=== PATIENT | female | born 1990 | race Caucasian/White ===

== ENCOUNTER 2025-01-16 08:02 | Outpatient (REF) | payer OTHER, SELFPAY ==
--- NOTE | 2025-01-16 | EMG_ITS ---
Chief complaint: Right hand pain and numbness Reason for referral: G56.01, CTS Referred by: Collette Diaz MD Procedure done: Right upper extremity NCS / EMG Right median and ulnar motor studies were performed. Right median and ulnar mixed sensory studies and radial sensory study was obtained. Bilateral median and lateral antecubital brachial sensory studies were performed an EMG needle examination was performed. There was significant delay of right median motor distal latencies. Median mixed study revealed moderately slow conduction velocity with significant delay of distal latencies. Impression: [id number]-ef-opqfetun right median neuropathy across carpal tunnel MTDD
--- OUTSIDE RECORDS SUMMARY | 2025-01-16 08:08 | XMS_ITS | Clinical Summary ---
Author Organization [facility] Address [address] [place] [address] Care Team Providers Care Junior Network Engineer Name Role Phone Unavailable Primary Care Provider Unavailabl e Source Comments PLEASE NOTE, if this patient is a minor, it may be UNLAWFUL to discuss sensitive information that is contained in these records (such as FAMILY PLANNING, MENTAL HEALTH or SUBSTANCE ABUSE) with the minor patient's parent or other person without the patient's specific authorization.[facility] Allergies No known active allergies Medications No known medications Active Problems No known active problems Encounters Date Type Department Care Team Description 11/07/2024 2:20 PM EDT Office Visit [facility] [address] [place] [id number] Teresa Jackman RHD from Last 3 Months Social History Tobacco Use Types Packs/Day Years Used Date Smoking Tobacco: Never Smokeless Tobacco: Never Tobacco Cessation:Counseling Given: Not Answered Alcohol Use Standard Drinks/Week Comments Never 0 (1 standard drink = 0.6 oz pur e alcohol) Social Connections Answer Date Recorded Connectedness 0 12/24/2023 Financial Resource Strain Answer Date R ecorded Financial Resource Strain 0 2022 Stress Answer Date Recorded Stress 0 12/21/2022 Physical Activity Answer Date Recorded Physical Activity 0 12/21/2022 Food Insecurity Answer Date Recorded Food 0 12/30/2023 Transportation Needs Answer Date Record ed Transportation 0 12/21/2022 Housing Stability Answer Date Recorded Housing 0 12/21/2022 Safety and Environment Answer Date Dave rded Safety 0 12/21/2022 Utilities Answer Date Recorded Utilities 0 12/21/2022 Employment Answer Date Recorded Stress 0 12/24/2023 Comments Unknown Sex and Gender Information Value Date Recorded Sex Assigned at Not on file Legal Sex Female 1:10 PM PDT Gender Identity Not on file Sexual Orientation Not on file Last Filed Vital Signs Vital Sign Reading Time Taken Comments Blood Pressure 121/89 11/07/2024 2:20 PM EDT Pulse 81 11/07/2024 2:20 PM EDT Temperature - - Respiratory Rate - - Oxygen Saturation - - Inhaled Oxygen Concentration - - Weight - - Height - - Body Mass Index - - Plan of Treatment Upcoming Encounters Date Type Department Care Team (Late st Contact Info) Description 05/14/2025 3:40 PM EST Office Visit [facility] [address] [place] [phone] Teresa Jackman, IRWIN [address] [place] [address] Health Maintenance Due Date Last Done Comments Anxiety Screening 1988 Diabetes Screening 1988 HPV Screening 1988 Hepatitis C Screening 1988 Pap + HPV 1988 HIV Screening 01/01/2003 Relationship Safety Screening/Counseling 01/01/2003 Imm-Hepatitis B (1 of 3 - 19 + 3-dose series) 01/01/2007 Cervical Cancer Screening 01/01/2009 Pap Smear 01/01/2009 Alcohol and Drug Screen 04/05/2024 Depression Annual Screen 04/05/2024 [id number] ( season) 2024 021, 11/26/2020 Imm-Influenza (#1) 2024 05/13/2020, 0 12/29/2016, 04/06/2014 Hypertension Screening (#1) 11/07/2025 Tobacco Screening 11/07/2025 11/07/2024 Dental BW 11/09/2025 11/07/2024, 10/03, 04/15/2023 Dental Examination 11/09/2025 11/07/2024, 0 10/14/2023, 04/15/2023 Dental Perio Charting 11/09/2025 11/07/2024 , 10/14/2023, 04/15/2023 Dental Prophy 11/09/2025 11/07/2024, 10/03, 04/15/2023 Dental FMX/Pano 04/17/2028 04/15/2023 Imm-DTaP/Tdap/Td (3 - Td or Tdap) 07/08/2030 021, 06/26/2014 Imm-HPV Completed 05/13/2021, 10/0 11/2020, 11/11/2020 Cervical Ablation/Cold-Knife Conization Discontinued Cervical Cryotherapy Discontinued Colposcopy Discontinued Endometrial Biopsy Discontinued Excision/Leep Discontinued HPV Genotyping Discontinued Vaginal Pap Discontinued Vulvoscopy Discontinued Procedures Procedure Name Priority Date/Time Associated Diagnosis Comments 10 INTRAORAL - PERIAPICAL FIRST RADIOGRAPHIC IMAGE Routine 11/07/2024 2:20 PM EDT Chronic gingivitis, plaque induced Encounter for dental examination PERIODIC ORAL EVALUATION ESTABLISHED PATIENT Routine 11/07/2024 2:20 PM EDT Encounter for dental examination DENTAL CASE MANAGEMENT - MOTIVATIONAL INTV Routine 11/07/2024 2:20 PM EDT Encounter for dental examination PROPHYLAXIS - ADULT Routine 11/07/2024 2 :20 PM EDT Encounter for dental examination COMP PERIODONTAL EVALUATION - NEW/EST PATIENT Routine 11/07/2024 2:20 PM EDT Encounter for dental examination BITEWINGS - FOUR RADIOGRAPHIC IMAGES Routine 11/07/2024 2:20 PM EDT Encounter for dental examination CARIES RISK ASSESSMENT & DOC FINDING HIGH RISK Routine 11/07/2024 2:20 PM EDT Encounter for dental examination NUTRITIONAL COUNSELING CONTROL OF DENTAL DISEASE Routine 11/07/2024 2:20 PM EDT Encounter for dental examination ORAL HYGIENE INSTRUCTIONS Routine 11/07/2024 2:20 PM EDT Encounter for dental examination ORAL CANCER SCREENING Routine 11/07/2024 2:20 PM EDT Encounter for dental examination CASE PRESENTATION SUBS DTL & EXTENSIVE TX PLN Routine 11/07/2024 2:20 PM EDT Encounter for dental examination INTRAORAL - COMP SERIES OF RADIOGRAPHIC IMAGES Routine 04/15/2023 10:20 AM EST Encounter for dental examination from Last 3 Months or Most Recently Relevant to Health Maintenance Insurance [employer] NET DENTAL DENTAL
--- OUTSIDE RECORDS SUMMARY | 2025-01-16 08:08 | XMS_ITS | Clinical Summary ---
Author Organization [facility] Address [address] [place] [address] Phone Care Team Providers Care Video Clerk Name Role Phone Cielo Diaz MD Primary Care Provider [phone] Allergies No known active allergies Medications No known medications Active Problems Problem Noted Date Diagnosed Date Benign breast cyst in female 06/19/2023 Overview (02/25/2024): 06/18/2023 Conclusions: Probably benign fibroglandular opacity in the posterior medial right breast without ultrasonographic correlate. 6 months follow-up mammogram is recommended. Findings were explained to the patient. Appointment is scheduled. Surgical History Surgery Date Site/Laterality Comments SECTION PROCEDURE: HISTORICAL DELIVERY TUBAL LIGATION PROCEDURE: HISTORICAL TUBAL LIGATION Medical History Medical History Date Comments Migraine DX:Migraine Family History Medical History Relation Name Comments Pancreatic cancer Aunt father side No Known Problems Brother No Known Problems Father intentisal cancer Father's Sister Breast cancer Father's side cousin Other cancer Father's side cousin eye (? neurobl astoma) No Known Problems Mother Sarcoidosis Other 1 cousine Prostate cancer Other 2 Breast cancer Other 3 mom speech and language tutor Breast cancer Paternal Grandmother No Known Problems Sister 1 No Known Problems Sister 2 Relation Name Status Comments Aunt father side Alive Brother Alive Father Alive Father's Sister Alive Father's side cousin Alive Half-Sister Alive Mother Alive Other 1 cousine Other 2 Other 3 mom speech and language tutor Paternal Grandmother Sister 1 Alive Sister 2 Alive Social History Tobacco Use Types Packs/Day Years Used Date Smoking Tobacco: Never Smokeless Tobacco: Never Alcohol Use Standard Drinks/Week Comments Never 0 (1 standard drink = 0.6 oz pur e alcohol) Comments No Sex and Gender Information Value Date Recorded Sex Assigned at Not on file Legal Sex Female 3:00 AM EST Gender Identity Not on file Sexual Orientation Not on file 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 Not on file Not on file Obstetrics History Para Term AB IAB SAB Ectopic Multiple Livin g Live Births 3 3 3 3 3 Date Outcome GA Total Labor Labor/2nd/3rd Weight Sex Type Anes PTL Lyudmila A1 A5 Name Clin 2004 Term Vag-S pont Living 2014 Term CS-Un spec Living 2020 Term CS-Un spec Living Last Filed Vital Signs Vital Sign Reading Time Taken Comments Blood Pressure 136/92 04/18/2024 1:34 PM EST Pulse 89 04/18/2024 1:34 PM EST Temperature - - Respiratory Rate 18 04/18/2024 1:34 PM EST Oxygen Saturation - - Inhaled Oxygen Concentration - - Weight 84 kg (185 lb 1.6 oz) 04/18/2024 1:34 PM EST Height 157.5 cm (5' 2 ) 04/18/2024 1:34 PM EST Body Mass Index 33.86 04/18/2024 1:34 PM EST Plan of Treatment Health Maintenance Due Date Last Done Comments Hepatitis B Vaccines (1 of 3 - 19+ 3-dose series) 01/01/2007 COVID-19 Vaccine (3 - Pfizer risk series) 01/14/2021 12/17/2020, 11/26/2020 Cholesterol Screening (Lipid Panel) 05/05/2023 HIV Screening 05/05/2023 Hepatitis C Screening 05/05/2023 Social Influencers of Health Screening 05/05/2023 Depression Screening 04/05/2024 Influenza Vaccine (#1) 2024 , 12/29/2016, 04/06/2014 Cervical Cancer Screening: HPV 03/31/2028 03/31/2023 DTaP,Tdap,and Td Vaccines (3 - Td or Tdap) 07/08/2030 07/08/2020, 06/26/2014 RSV Immunization Adult Patients (1 - 1-dose 75+ series) 01/01/2063 HPV Vaccines Completed 05/13/2021, 01/10/2021, 11/11/2020 HIB Vaccines Aged Out No longer eligi ble based on patient's age to complete this topic Hepatitis A Vaccines Aged Out No long er eligible based on patient's age to complete this topic IPV Vaccines Aged Out No longer eligi ble based on patient's age to complete this topic MMR Vaccines Aged Out No longer eligi ble based on patient's age to complete this topic Meningococcal ACWY Vaccine Aged Out N o longer eligible based on patient's age to complete this topic Meningococcal B Vaccine Aged Out No l onger eligible based on patient's age to complete this topic Pneumococcal Vaccine: Pediatrics (0 to 5 Years) and At-Risk Patients (6 to 49 Years) Aged Out No longer eligible b ased on patient's age to complete this topic RSV Immunization Patients Under 20 months Aged Out No longer eligible b ased on patient's age to complete this topic Varicella Vaccines Aged Out No longer eligible based on patient's age to complete this topic Procedures Procedure Name Priority Date/Time Associated Diagnosis Comments HPV Routine 03/31/2023 from Last 3 Months or Most Recently Relevant to Health Maintenance Results * Cervical Cancer Screening: HPV (03/31/2023) Cervical Cancer Screening: HPV negative, abstracted Historical Provider MD HEALTH MAINTENANCE Final Result from Last 3 Months or Most Recently Relevant to Health Maintenance Insurance [facility] PUBLIC PL[employer] Care Teams Video Clerk Relationship Specialty Start Date End Date Cielo Diaz MD [address] [place] [address] [place] [address] PCP - General 02/11/23
== END 2025-01-16 08:03 | disposition home or self-care (01) ==
LOC: HO.NEURO 08:02
PROVIDERS: PCP Internal Medicine; Visit Provider Internal Medicine
DX: G56.01 Carpal tunnel syndrome, right upper limb (principal); R20.0 Anesthesia of skin
CPT/HCPCS: 95886; 95910

== ENCOUNTER → 2025-01-16 08:06 | Outpatient (BNV) | payer OTHER, SELFPAY | PROVIDERS: PCP Internal Medicine; Visit Provider Psychiatry & Neurology Neurology | DX: G56.01 Carpal tunnel syndrome, right upper limb (principal) | CPT/HCPCS: 95886; 95909 ==

== ENCOUNTER 2025-03-27 11:09 | Outpatient (AMB) | payer OTHER, SELFPAY ==
--- NOTE | 2025-03-27 11:14 | AM.OFFWIN_ITS ---
Intake Vital Signs 03/27/25 11:17 Height 5 ft 2 in Weight 161 lb BMI 29.4 BP 119/68 Blood Pressure Location Lt brachial Position Sitting Respiration 18 Pulse 70 Pulse Source Pulse Oximeter Temp 97.9 F Temp Source Oral Pulse Oximetry (%) 100 Oxygen Delivery Method Room Air Intake Visit Reasons: EP - Vertigo Intake Note: EP complains of heaviness in her head, feeling like her face is trembling, feeling of falling when walking and feeling the room is moving when she is in resting position. Statred last week on . Allergies No Known Allergies Allergy (Verified 03/27/25 11:26) Medication List - Last Reconciled 03/27/25 by Taylor Suazo MD clobetasol 0.05% topical BID PRN meclizine 12.5 mg PO TID PRN naproxen 500 mg PO BID Do you need a note to return to daycare/school/sports/work: Yes HPI HPI Comments History of Present Illness Details History of Present Illness The patient is a 35 year old female presenting with dizziness, left impacted cerumen, and headaches. Jarocho TAFOYA assisted with translation as patient speaks primarily Guyanese. Dizziness and Vertigo: - The patient reports the onset of dizzi ness began last . - She has a history of vertigo, which sh e attributes to cerumen impaction that requires flushing - She reports dizziness worsens with mov ement of the head - Patient records from [facility] indicate a similar presentation of dizziness, headaches, and a crawling sensation, for which she was prescribed medications for vertigo and atypical migraines. - The patient has a history of migraines but discontinued her migraine medication a few years ago due to resolution of symptoms - She currently reports a mild headache. She took ibuprofen 600mg which only helped a little. 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 - She denies any significant vision mojica ges. - The patient previously visited a [facility] urgent care for her ear and was prescribed antibiotics in the beginning of March, which she did not finish due to experiencing unwanted side effects - She denies any current ear pain. She d enies chest pain, shortness of breath, or palpitations - She denies any nausea, vomiting, visio n changes, or focal weakness. Review of Systems Constitutional: Negative for fevers, chills HENT: Reported impacted cerumen of the left ear. Denies ear pain, ear discharge Eyes: Negative for visual disturbance Cardiac: Denies chest pain, shortness of breath, palpitations Gastrointestinal: Negative for nausea, vomiting. Neurological: Reports dizziness and headaches. Negative for numbness or weakness. Physical Exam General Appearance: Normal appearance, well developed. No acute distress HEENT: Normocephalic, atraumatic. PERRLA. EOM intact without nystagmus. Impacted cerumen of the left ear. Moderate ear wax noted in the right ear. Pulmonary: No respiratory distress. Speaking in full sentences Musculoskeletal: Moving all extremities spontaneously and against gravity Neurological: CN 2-12 tested and intact. No focal deficits noted on exam. Normal gait Mental Status: Alert and Oriented x 3 Psychiatric: Normal mood. Normal affect. Physical Exam Vital Signs: Last Vital Signs Temp 97.9 F 03/27/25 11:17 Pulse 70 03/27/25 11:17 Resp 18 03/27/25 11:17 BP 119/68 03/27/25 11:17 Pulse Ox 100 03/27/25 11:17 Oxygen Delivery Method Room Air 03/27/25 11:17 BMI result Body Mass Index 29.4 Office Procedures Cerumen Removal Details: Performed by LUIS CARLOS Ugarte From which ear canal was the cerumen removed: bilateral Removal: irrigation Notes: patient tolerated procedure well [id number] Irrigation/Lavage Assessment & Plan Assessment & Plan (1) Dizziness: Code(s): R42 - Dizziness and giddiness (2) Impacted cerumen of both ears: Code(s): H61.23 - Impacted cerumen, bilateral (3) Headache: Code(s): R51.9 - Headache, unspecified Qualifiers: Headache type: unspecified Headache chronicity pattern: acute headache Intractability: not intractable Qualified Code(s): R51.9 - Headache, unspecified Plan - Patient presents with cerumen impaction (L>R), dizziness, and headaches. - Patient reports a history of dizziness caused cerumen impaction, however was also noted to have a history of vertigo in the past - No neurological deficits were noted on exam - Both ears were irrigated and were clear upon re-evaluation without any signs of infection. - The patient reported some residual dizziness post irrigation. Discussed with patient that any remaining water may also be contributing to symptoms. However, due to history of vertigo, if symptoms persist, meclizine will be sent to patient's pharmacy to take as needed. Discussed proper administration and potential side effects of medication. - Advised ibuprofen or naproxen to help with mild headaches. She has a history of migraines but has not required prescription medication for a few years. Recommended to take medication with food. May take Tylenol if additional pain management as necessary, however was advised not to take ibuprofen and naproxen together. - Advised to avoid using Q-tips in ears and consider using Debrox drops to decrease the reaccumulation of wax - Recommended to return if any pain or drainage/discharge from the ears occurs - Advised to seek medical attention if severe headaches not improving with medication, ongoing dizziness, vision changes, or focal deficits occur. Patient was informed and verbally consented to the use of an ambient scribe for clinic note documentation during the visit. Orders: Orders AMB Cerumen Removal Today H61.23 - Impacted cerumen, bilateral Medications: New meclizine 12.5 mg PO TID PRN 10 tabs 0RF dizziness Coding Level of Care Code Est Pt Level 3 (84484) Diagnoses Dizziness R42 Impacted cerumen of both ears H61.23 Acute nonintractable headache, unspecified headache type R51.9 Headache type: unspecified Headache chronicity pattern: acute headache Intractability: not intractable CPT Codes Office Procedure - CPT: [id number] Irrigation/Lavage ([id number])
[2025-03-27 11:17] VITALS: BP 119/68; PULSE 70; RESP 18; TEMP 36.6; O2SAT 100; BMI 29.4
--- OUTSIDE RECORDS SUMMARY | 2025-03-27 12:30 | XMS_ITS | Clinical Summary ---
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 attendant Breast cancer Paternal Grandmother No Known Problems Sister 1 No Known Problems Sister 2 Relation Name Status Comments Aunt father side Alive Brother Alive Father Alive Father's Sister Alive Father's side cousin Alive Half-Sister Alive Mother Alive Other 1 cousine Other 2 Other 3 mom candy bar attendant Paternal Grandmother Sister 1 Alive Sister 2 [...] Industry Job Start Date Job End Date [employer] Not on file Not on file Not [...] Most Recently Relevant to Health Maintenance Insurance [facility] [employer] Care Teams Progressive Care Unit Registered Nurse Relationship Specialty Start Date End Date Cielo Diaz MD [address] [place] [address] [place] [address] PCP - General 02/11/23
== END 2025-03-27 12:22 | disposition home or self-care (01) ==
LOC: HO.HMCWIS 11:09
PROVIDERS: PCP Student in an Organized Health Care Education/Training Program; Visit Provider Family Medicine
DX: R42 Dizziness and giddiness (principal); H61.23 Impacted cerumen, bilateral; R51.9 Headache, unspecified

== ENCOUNTER → 2025-03-27 11:09 | Outpatient (BNVA) | payer OTHER, SELFPAY | PROVIDERS: PCP Student in an Organized Health Care Education/Training Program; Visit Provider Family Medicine | DX: H61.23 Impacted cerumen, bilateral (principal); R42 Dizziness and giddiness; R51.9 Headache, unspecified | CPT/HCPCS: 69209; 99212 ==